=== PATIENT | male | born 1955 | race Caucasian/White ===

== ENCOUNTER → 2017-02-04 | Day surgery (SDC) | payer OTHER ==
[~2017-02-04] MED LIST: ASPIRIN EC81 M1 PO; ASPIRIN81 M2 PO; COREG3.125 MG PO; FLEXERIL PO; KLONOPIN0.5 MG PO; LIPITOR20 MG PO; LISINOPRIL10 MG PO; METOPROLOL TART25 MG PO; TYLENOL PO
--- NOTE | ~2017-02-04 | OR ---
Unit #: [id number] #: [id number] Patient: JOSSE POLLACK [id number] [address] [address] [id number] O MR#: [id number] NAME: JOSSE POLLACK ROOM: Date of Procedure: 02/04/2017 Admission Date: 02/04/2017 Surgeon: Abhilash Beltran M.D. : 1955 Attending Physician: Abhilash Beltran M.D. Primary Care Physician: Shahnaz Carrasco M.D. OPERATIVE REPORT JOB NOTE: CC: PRIMARY CARE PHYSICIAN PROCEDURE PERFORMED Colonoscopy with snare polypectomy. INDICATIONS FOR PROCEDURE A 61-year-old gentleman with average risk for colorectal cancer, here for screening colonoscopy. MEDICATIONS Monitored anesthesia. POSTOPERATIVE FINDINGS 1. Two polyps, sigmoid colon, 3 to 4 mm each, snared, and sent for histopathology. 2. Mild diverticulosis. 3. Internal hemorrhoids grade 2. PLAN Repeat colonoscopy in 5 years if adenomatous. DESCRIPTION OF PROCEDURE The patient was explained of the procedure, risks, and benefits along with the risks and benefits of anesthesia. He was brought to the endoscopy room. Propofol anesthesia was given. Rectal exam was done, which was normal. Colonoscope was lubricated, passed up the rectum, advanced under direct vision all the way to the cecum. Cecum was identified by ileocecal valve and appendiceal orifice. Two polyps seen in sigmoid colon were snared and sent for histopathology. I retroflexed in the rectum, internal hemorrhoids noted. Gently, the scope was pulled out. He tolerated it well. Dictated by... Olive Gonsalez/farzaneh TD: 02/05/2017 01:55 JOB #: [id number] Unit #: [id number] #: [id number] Patient: JOSSE POLLACK OPERATIVE REPORT X Abhilash Beltran MD X PROCEDURE OPERATIVE NOTE
== END | disposition home or self-care (01) ==
LOC: COPS 09:32
DX: Z12.11 Encounter for screening for malignant neoplasm of colon (principal); K63.5 Polyp of colon; K57.30 Diverticulosis of large intestine without perforation or abscess without bleeding; K64.8 Other hemorrhoids; Z90.49 Acquired absence of other specified parts of digestive tract
CPT/HCPCS: 88305

== ENCOUNTER → 2017-06-10 | Outpatient (CLI) | payer OTHER ==
--- NOTE | ~2017-06-10 | EKG ---
PATIENT: JOSSE POLLACK UNIT #: [id number] Ventricular Rate: 72 BPM Atrial Rate: 72 BPM P-R Interval: 160 ms QRS Duration: 88 ms Q-T Interval: 390 ms QTC Calculation(Bezet): 427 ms P Hampton: 29 degrees Calculated R Hampton: 28 degrees Calculated T Hampton: 48 degrees Diagnosis Line: Normal sinus rhythm Diagnosis Line: Normal ECG Diagnosis Line: Diagnosis Line: Confirmed by CHALINO JIMENEZ MD ([id number]) on 06/11/2017 Diagnosis Line: 7:55:23 PM INTERPRETING MD: TONY MURRAY
--- NOTE | ~2017-06-10 | CR63 ---
[facility] A Service of [facility] RADIOLOGY TEXT RESULTS PATIENT: JOSSE POLLACK LOCATION: [facility] : 53 UNIT #: [id number] AGE: [address]: Shruti Paz APRN SEX: M ORDER DR: [id number] [facility] [address] [facility]. [place], [place] [address] [id number] O MR#: [id number] Acc #: [id number] NAME: JOSSE POLLACK : 1955 SEX: M STUDY DATE/TIME: 06/10/2017 14:24 UNIT: [facility] ROOM: STUDY DESCRIPTION: CR Chest 2 View Attending Physician: Shruti Paz Aprn Referring Physician: Shruti Paz Aprn Ordering Physician: Shruti Paz Aprn Primary Care Physician: Shahnaz Carrasco M.D. MEDICAL IMAGING REPORT This report is preliminary unless electronic signature is present EXAM Chest 06/10/2017 HISTORY 62-year-old male preop. History of congestion. Past smoker. COMPARISON None. FINDINGS PA and lateral chest views demonstrate normal cardiac size and configuration. Hilar structures and mediastinal contours are preserved. Lungs are mildly hyperinflated but clear bilaterally. Costophrenic angles are preserved. IMPRESSION No acute chest finding. Dictated by... Tej Villareal M.D. THIS IS AN ELECTRONICALLY VERIFIED REPORT Tej Villareal M.D. at 06/11/2017 7:14 AM GAURANG/sukhdev TD: 06/10/2017 22:27 JOB #: [id number] MEDICAL IMAGING REPORT Page 1 of 1 COPY
== END | disposition home or self-care (01) ==
LOC: CRAD 14:05
DX: Z01.818 Encounter for other preprocedural examination (principal); R05 Cough; R53.83 Other fatigue
CPT/HCPCS: 71020; 93005